=== PATIENT | male | born 1955 | race Caucasian/White ===

== ENCOUNTER 2020-02-10 04:27 | Emergency (ER) | payer MEDICAID ==
[~2020-02-10] VITALS: Ht 170.2 cm; Wt 80.0 kg
--- NOTE | 2020-02-10 04:50 | NUR ---
Pt c/o right knee pain states was seen and had xrays done, can't stand pain.
[2020-02-10] MEDS ORDERED: HYDROcodone/APAP 5/325 TABLET ONE (05:06)
--- NOTE | 2020-02-10 05:13 | NUR ---
Medicated per order, waiting for xray.
[2020-02-10] MEDS ORDERED: HYDROcodone/APAP 5/325 TABLET PO ONE (05:30)
--- NOTE | 2020-02-10 05:39 | NUR ---
Pt has not gone to xray yet. Called to radiology, n/a.
--- NOTE | 2020-02-10 06:26 | NUR ---
Back from xray. Pt states pain is much better s/p meds. VSS.
[2020-02-10 06:43] VITALS: BP 125/74
--- NOTE | 2020-02-10 06:43 | NUR ---
Waiting for ERP re-evaluation and dc. Good pain relief with norco. VSS
--- NOTE | 2020-02-10 06:55 | NUR ---
I AM ASSUMING CARE OF THIS PT FROM MARIANNA (GENO) AT THIS TIME. SBAR REPORT WAS EXCHANGED AT THE BEDSIDE.
== END 2020-02-10 07:55 | disposition home or self-care (01) ==
LOC: ED 07:49
DX: M25.562 Pain in left knee (principal); I10 Essential (primary) hypertension; E78.5 Hyperlipidemia, unspecified
CPT/HCPCS: 73564; 99283; J7512

== ENCOUNTER 2020-11-22 19:26 | Emergency (ER) | payer MEDICAID ==
[~2020-11-22] VITALS: Ht 170.2 cm; Wt 83.9 kg
[2020-11-22 21:20] VITALS: BP 156/92
--- NOTE | 2020-11-22 22:18 | NUR ---
PT LEAVING AMA
== END 2020-11-22 22:20 | disposition left against medical advice (07) ==
LOC: ED 19:45
DX: J06.9 Acute upper respiratory infection, unspecified (principal); Z20.822 Contact with and (suspected) exposure to COVID-19; B34.9 Viral infection, unspecified; M79.10 Myalgia, unspecified site; I10 Essential (primary) hypertension
CPT/HCPCS: 99283; U0003; U0005